=== PATIENT | female | born 1945 | race Two or more races ===

== ENCOUNTER 2017-07-18 20:53 | Inpatient (IN) | payer MEDICARE, BC ==
[2017-07-18 21:29] LABS: ADD MAN DIFF? NO
[2017-07-18 21:36] LABS: BASO # 0.1 x10^3/uL (0.0-0.2); BASO % 1 % (0-3); EOS # 0.1 x10^3/uL (0.0-0.7); EOS % 2 % (0-3); HEMATOCRIT 41.5 % (36.0-47.0); HEMOGLOBIN 13.8 g/dL (12.0-15.5); LYMPH # 2.7 x10^3/uL (1.0-4.8); LYMPH % 49 % (24-48); MEAN CORPUSCULAR HEMOGLOBIN 33 pg (25-35); MEAN CORPUSCULAR HGB CONC 33 g/dL (31-37); MEAN CORPUSCULAR VOLUME 98 fL (79-100); MONO # 0.5 x10^3/uL (0.0-1.1); MONO % 9 % (0-9); NEUT # 2.1 x10^3uL (1.8-7.7); NEUT % 39 % (31-73); PLATELET COUNT 193 x10^3/uL (140-400); RED BLOOD COUNT 4.22 x10^6/uL (3.50-5.40); RED CELL DISTRIBUTION WIDTH 14.3 % (11.5-14.5); WHITE BLOOD COUNT 5.6 x10^3/uL (4.0-11.0)
[2017-07-18] MEDS: fentaNYL PF VIAL 100 MCG/2 ML VIAL IV ×2 (21:40)
[2017-07-18 21:47] LABS: ANION GAP 13 (6-14); BLOOD UREA NITROGEN 15 mg/dL (7-20); CALCIUM 9.3 mg/dL (8.5-10.1); CARBON DIOXIDE 24 mmol/L (21-32); CHLORIDE 105 mmol/L (98-107); CREATININE 0.7 mg/dL (0.6-1.0); GLUCOSE 110 mg/dL (70-99); POTASSIUM 3.8 mmol/L (3.5-5.1); SODIUM 142 mmol/L (136-145)
[2017-07-18 22:33] LABS: TROPONINI < 0.017 ng/mL (0.000-0.055)
[2017-07-18] MEDS: LABETALOL 20 MG/4 ML DISP.SYRIN. IVP ×2 (23:22)
[2017-07-19] MEDS ORDERED: ONDANSETRON PF 4 MG/2 ML VIAL. IV ×2 (00:45)
[2017-07-19] MEDS: LABETALOL 20 MG/4 ML DISP.SYRIN. IVP ×2 (01:39)
[2017-07-19 07:43] LABS: TROPONINI 0.022 ng/mL (0.000-0.055)
[2017-07-19] MEDS ORDERED: ALPRAZolam 0.5 MG TABLET PO ×2 (10:15)
[2017-07-19] MEDS: predniSONE 1 MG TABLET PO ×2 (10:22)
[2017-07-19] MEDS: CALCIUM CARB/VIT D3 500/200 TABLET. PO ×2 (10:23)
[2017-07-19] MEDS: PANTOPRAZOLE 40 MG TABLET.DR. PO ×2 (10:23)
[2017-07-19] MEDS: HYDROcodone/APAP 5/325MG 1 TAB TABLET PO ×2 (10:24)
[2017-07-19] MEDS ORDERED: ACETAMINOPHEN 325 MG TABLET. PO ×2 (10:30)
[2017-07-19] MEDS ORDERED: MECLIZINE HCL 12.5 MG TABLET. PO ×2 (10:30)
[2017-07-19] MEDS: amLODIPine BESYLATE 10 MG TABLET PO ×2 (12:22)
== END 2017-07-19 13:00 | disposition home or self-care (01) | DRG 305 ==
LOC: 5 SOUTH 22:32 → ER 20:53
DX: I16.1 Hypertensive emergency (principal); Z82.49 Family history of ischemic heart disease and other diseases of the circulatory system; I10 Essential (primary) hypertension
CPT/HCPCS: 36415; 80048; 84484; 85025; 93005; 96374; 96375; 99285; 99285-25; J3010; J3490; J7512

== ENCOUNTER → 2020-11-19 | Outpatient (CLI) | payer MEDICARE, BC ==
[2017-07-19 12:22] VITALS: BP 129/85
[~2020-11-19] MED LIST: ALPR0.5T6 PO; AMLO-187 PO; CALC-98 PO; MECL-75 PO; OMEP40CA7 PO; PRED1TAB3 PO; [UNRECOGNIZED DRUG - CODE] PO
--- NOTE | 2020-11-19 17:20 | CARD ---
MR#: [id number] Date of Study: 11/19/2020 Ordering Physician: JAYRO QUINTERO, Referring Physician: JAYRO QUINTERO, Tech: Johan Sánchez [facility] APPROVED REPORT EXAM: Two-dimensional and M-mode echocardiogram with Doppler and color Doppler. Other Information Quality : AverageHR: 67bpm Rhythm : NSR INDICATION Cardiomegaly 2D DIMENSIONS RVDd3.4 (2.9-3.5cm)Left Atrium(2D)3.3 (1.6-4.0cm) IVSd1.4 (0.7-1.1cm)Aortic Root(2D)3.1 (2.0-3.7cm) LVDd4.4 (3.9-5.9cm)LVOT Diameter2.0 (1.8-2.4cm) PWd1.3 (0.7-1.1cm)LVDs2.5 (2.5-4.0cm) FS (%) 43.3 %SV64.3 ml LVEF(%)74.7 (>50%) Mitral Valve MV E Rfsnuvtz38.5cm/sMV E Peak Gr.4mmHg MV DECEL [id number] A Jzgvygho56.6cm/s MV [id number]/A Ratio1.1 MVA (PHT)3.88cm2 TDI E/Lateral E'9.1E/Medial E'13.6 Pulmonary Valve PV Peak Dcwundum78.1cm/sPV Peak Grad.3mmHg Tricuspid Valve TR P. Yaycpnhw181sl/sTR Peak Gr.24mmHg Pulmonary Vein S1 Vzessilp51.7cm/sD2 Pxgqsfyw86.8cm/s LEFT VENTRICLE The left ventricle is normal size. There is mild concentric left ventricular hypertrophy. The left ve ntricular systolic function is normal. The ejection fraction is 60-65%. There is normal LV segmental wall motion. The left ventricular diastolic function and filling is normal for age. No left ventricle thrombus noted on this study. There is no ventricular septal defect visualized. RIGHT VENTRICLE The right ventricle is mildly dilated. There is normal right ventricular wall thickness. The right ve ntricular systolic function is normal. ATRIA The left atrium size is normal. The right atrium size is normal. The interatrial septum is intact wit h no evidence for an atrial septal defect or patent foramen ovale as noted on 2-D or Doppler imaging. AORTIC VALVE The aortic valve is normal in structure and function. Doppler and Color Flow revealed no significant aortic regurgitation. There is no significant aortic valvular stenosis. There is no aortic valvular v egetation. MITRAL VALVE The mitral valve is normal in structure and function. There is no evidence of mitral valve prolapse. There is no mitral valve stenosis. Doppler and Color-flow revealed trace mitral regurgitation. TRICUSPID VALVE The tricuspid valve is normal in structure and function. Doppler and Color Flow revealed trace to mil d tricuspid regurgitation. There is no tricuspid valve prolapse or vegetation. There is no tricuspid valve stenosis. PULMONIC VALVE The pulmonary valve is normal in structure and function. Doppler and Color Flow revealed no pulmonic valvular regurgitation. There is no pulmonic valvular stenosis. GREAT VESSELS The aortic root is normal in size. The ascending aorta is normal in size. The pulmonary artery is nor mal. The IVC is normal in size and collapses >50% with inspiration. PERICARDIAL EFFUSION There is no pleural effusion. There is no evidence of significant pericardial effusion. Critical Notification Critical Value: No <Conclusion> The left ventricular systolic function is normal. The ejection fraction is 60-65%. There is normal LV segmental wall motion. Trace mitral regurgitation. Trace to mild tricuspid regurgitation. There is no evidence of significant pericardial effusion. Signed by : Thee Pritchett, Electronically Approved : 11/19/2020 17:20:08
== END ==
LOC: ECHO 14:57
PROVIDERS: ATTEND Internal Medicine Cardiovascular Disease
DX: I07.1 Rheumatic tricuspid insufficiency (principal)
CPT/HCPCS: 93306